=== PATIENT | male | born 1955 | race Caucasian/White ===

== ENCOUNTER 2017-09-29 15:33 | Inpatient (IN) | payer OTHER ==
[~2017-09-29] VITALS: Ht 170.2 cm; Wt 75.3 kg
[2017-09-29 16:34] LABS: Basophils # (auto) 0 uL; Eosinophils # (auto) 0 uL; Eosinophils % (auto) 0.1 % (0.0-7.0); Hemoglobin 18.5 g/dL (13.5-17.5); Lymphocytes # (auto) 1.2 uL; Neutrophils # (auto) 6.5 uL
[2017-09-29 16:36] LABS: Basophils % (auto) 0.1 % (0.0-2.0); Hematocrit 53.4 % (41.0-53.0); Lymphocytes % (auto) 13.8 % (10.0-50.0); Mean Corpuscular Hemoglobin 30.4 pg (28.0-32.0); Mean Corpuscular Hgb Conc. 34.7 g/dL (32.0-36.0); Mean Corpuscular Volume 87.5 fL (80.0-100.0); Monocytes # (auto) 1.2 uL; Monocytes % (auto) 13.1 % (0.0-12.0); Neutrophils % (auto) 72.9 % (37.0-80.0); Nucleated Red Blood Cells % 0.3 %; Platelet Count (auto) 339 10^3/uL (140-450); Red Cell Distribution Width 13.9 % (11.8-14.3); White Blood Cell 8.9 10^3/uL (4.4-10.8)
[2017-09-29 16:57] LABS: Albumin 3.4 g/dL (3.4-5.0); BUN/Creatinine Ratio 29.1; Bilirubin, Total 1.6 mg/dL (0.2-1.0); Calcium 12.3 mg/dL (8.5-10.1); Magnesium 2.3 mg/dL (1.6-2.6); Potassium 3.2 mmol/L (3.5-5.1); Total Protein 8.8 g/dL (6.4-8.2)
[2017-09-29] MEDS ORDERED: SODIUM CHLORIDE 0.9% 1,000 ML IVB ONE (18:08)
[2017-09-29 19:13] LABS: INR 1.1 (0.9-1.15); Partial Thromboplastin Time 24.4 sec (22.64-33.71)
[2017-09-29 20:05] LABS: Lactic Acid w/Reflex 2.7 mmol/L (0.4-2.0)
[2017-09-29] MEDS ORDERED: SODIUM CHLORIDE 0.9% 1,000 ML IV ONE (20:30)
[2017-09-29] MEDS ORDERED: ONDANSETRON HCL 4 MG/2 ML VIAL IV ONE (20:30)
[2017-09-29] MEDS ORDERED: MORPHINE SULF INJ 2 MG/ML SYRINGE 1ML IV ONE (20:30)
[2017-09-29] MEDS ORDERED: cefTRIAXone 1GM/10ml IVPUSH 10 ML IV ONE (20:45)
[2017-09-29] MEDS ORDERED: LIDOCAINE VISCOUS 2% 15ML UD PO ONE (21:15)
[2017-09-29] MEDS ORDERED: ONDANSETRON HCL 4 MG/2 ML VIAL IV PRN (22:15)
[2017-09-29] MEDS ORDERED: MORPHINE SULF INJ 2 MG/ML SYRINGE 1ML IV PRN (22:15)
[2017-09-29] MEDS ORDERED: ACETAMINOPHEN 325 MG TAB PO PRN (22:15)
[2017-09-29] MEDS ORDERED: NITROGLYCERIN 0.4 MG SL TAB SL PRN (22:15)
[2017-09-29] MEDS: SODIUM CHLORIDE 0.9% 1,000 ML IV SCH (22:51)
[2017-09-30] VITALS (10 sets, daily range): BP systolic 63–121; BP diastolic 43–69
[2017-09-30] MEDS: MORPHINE SULF INJ 2 MG/ML SYRINGE 1ML IV PRN ×2 (05:38→17:05)
[2017-09-30 08:04] LABS: Basophils # (auto) 0 uL; Basophils % (auto) 0.2 % (0.0-2.0); Eosinophils # (auto) 0 uL; Hematocrit 43.2 % (41.0-53.0); Hemoglobin 15.3 g/dL (13.5-17.5); Lymphocytes # (auto) 1.1 uL; Mean Corpuscular Hemoglobin 30.7 pg (28.0-32.0); Mean Corpuscular Hgb Conc. 35.5 g/dL (32.0-36.0); Mean Corpuscular Volume 86.6 fL (80.0-100.0); Monocytes # (auto) 0.9 uL; Monocytes % (auto) 8.8 % (0.0-12.0); Neutrophils # (auto) 7.9 uL; Nucleated Red Blood Cells % 0.1 %; Platelet Count (auto) 298 10^3/uL (140-450); Red Blood Cells 4.99 10^6/uL (4.5-5.90); Red Cell Distribution Width 13.6 % (11.8-14.3); White Blood Cell 9.9 10^3/uL (4.4-10.8)
[2017-09-30] MEDS: SODIUM CHLORIDE 0.9% 1,000 ML IV SCH ×2 (08:15→16:00)
[2017-09-30 08:16] LABS: Albumin 2.6 g/dL (3.4-5.0); BUN/Creatinine Ratio 43.8; Bilirubin, Total 1.1 mg/dL (0.2-1.0); Calcium 10.3 mg/dL (8.5-10.1)
[2017-09-30 08:26] LABS: Potassium 2.8 mmol/L (3.5-5.1)
[2017-09-30] MEDS ORDERED: cefTRIAXone 1GM/10ml IVPUSH 10 ML IV SCH (09:00)
[2017-09-30] MEDS: PANTOPRAZOLE 40 MG/10 ML VIAL IV SCH (09:20)
[2017-09-30] MEDS ORDERED: PNEUMOCOCCAL VACC POLYS 25 MCG/0.5 ML VIAL IM ONE (10:00)
[2017-09-30] MEDS ORDERED: INFLUENZA QUAD 2017-2018 0.5 ML SYRG IM ONE (10:00)
[2017-09-30 10:07] LABS: Urine Bacteria NONE SEEN /hpf (None Seen); Urine Blood Negative /uL (Negative); Urine Mucus FEW (None Seen); Urine Specific Gravity 1.021 (1.001-1.035); Urine WBC 4 /hpf (0 - 3)
[2017-09-30] MEDS ORDERED: GASTROGRAFIN 120 ML SOL ONE (11:09)
[2017-09-30] MEDS ORDERED: POTASSIUM CHLORIDE 40 MEQ, LIDOCAINE 1% (LOCAL ANESTH.) 4 ML in SODIUM CHL 0.9% 100 ML IV ONE (11:15)
[2017-09-30] MEDS: metroNIDAZOLE 500MG/100ML 100 ML IV SCH ×2 (13:13→17:33)
[2017-09-30 18:00] LABS: Hematocrit 42.5 % (41.0-53.0); Hemoglobin 14.6 g/dL (13.5-17.5); Mean Corpuscular Hemoglobin 30.4 pg (28.0-32.0); Mean Corpuscular Hgb Conc. 34.4 g/dL (32.0-36.0); Mean Corpuscular Volume 88.4 fL (80.0-100.0); Platelet Count (auto) 249 10^3/uL (140-450); Red Cell Distribution Width 13.9 % (11.8-14.3); White Blood Cell 5.8 10^3/uL (4.4-10.8)
[2017-09-30 18:01] LABS: Albumin 2.3 g/dL (3.4-5.0); BUN/Creatinine Ratio 36.8
[2017-09-30 18:02] LABS: Band Neutrophils % (manual) 0; Basophils % (manual) 0 (0.0-2.0); Blast Cells 0; Eosinophils % (manual) 0 (0-7); Promyelocytes % 0; Reactive Lymphocytes 0
[2017-09-30 18:03] LABS: Total Protein 6.2 g/dL (6.4-8.2)
[2017-09-30 18:04] LABS: Lactic Acid w/Reflex 2.2 mmol/L (0.4-2.0)
[2017-09-30 18:05] LABS: Potassium 2.5 mmol/L (3.5-5.1)
[2017-09-30 19:12] LABS: Lymphocytes % (manual) 24 (10.0-50.0); Metamyelocytes % 4; Monocytes % (manual) 5 (0-12); Myelocytes % 3
[2017-09-30] MEDS: ACETAMINOPHEN 650 MG RECT SUPP PR PRN (20:10)
[2017-09-30 21:41] LABS: BUN/Creatinine Ratio 36.3; Calcium 9.2 mg/dL (8.5-10.1)
[2017-09-30 21:46] LABS: Potassium 2.8 mmol/L (3.5-5.1)
[2017-09-30 23:03] LABS: Lactic Acid w/Reflex 2.6 mmol/L (0.4-2.0)
[2017-09-30] MEDS ORDERED: DILTIAZEM HCL 25 MG/5 ML VIAL IV ONE (23:45)
[2017-09-30] MEDS ORDERED: POTASSIUM CHL 20MEQ/50ML 50 ML IV ONE (23:51)
[2017-10-01] VITALS (59 sets, daily range): BP systolic 52–154; BP diastolic 17–77
[2017-10-01] MEDS: NOREPINEPHRINE 8 MG/250ML KIT 250 ML IV SCH ×2 (00:20→10:00)
[2017-10-01] MEDS: POTASSIUM CHL 20MEQ/50ML 50 ML IV SCH ×2 (00:30→01:45)
[2017-10-01] MEDS: SODIUM CHLORIDE 0.9% 1,000 ML IV SCH (01:15)
[2017-10-01] MEDS: metroNIDAZOLE 500MG/100ML 100 ML IV SCH ×4 (01:15→18:06)
[2017-10-01 05:23] LABS: Hematocrit 42.1 % (41.0-53.0); Hemoglobin 13.9 g/dL (13.5-17.5); Mean Corpuscular Hemoglobin 29.6 pg (28.0-32.0); Mean Corpuscular Hgb Conc. 33.1 g/dL (32.0-36.0); Mean Corpuscular Volume 89.4 fL (80.0-100.0); Platelet Count (auto) 268 10^3/uL (140-450); Red Blood Cells 4.71 10^6/uL (4.5-5.90); White Blood Cell 20.1 10^3/uL (4.4-10.8)
[2017-10-01 05:28] LABS: Basophils % (manual) 0 (0.0-2.0); Blast Cells 0; Eosinophils % (manual) 0 (0-7); Monocytes % (manual) 0 (0-12); Promyelocytes % 0; Reactive Lymphocytes 0
[2017-10-01 05:38] LABS: Lactic Acid w/Reflex 2.5 mmol/L (0.4-2.0)
[2017-10-01 06:09] LABS: Band Neutrophils % (manual) 34; Lymphocytes % (manual) 10 (10.0-50.0); Metamyelocytes % 12; Myelocytes % 3
[2017-10-01] MEDS: ACETAMINOPHEN 650 MG RECT SUPP PR PRN (06:21)
[2017-10-01 07:00] LABS: Potassium 3.1 mmol/L (3.5-5.1)
[2017-10-01 07:07] LABS: Albumin 2.2 g/dL (3.4-5.0); BUN/Creatinine Ratio 48.4; Bilirubin, Total 1.2 mg/dL (0.2-1.0); Total Protein 6.4 g/dL (6.4-8.2)
[2017-10-01] MEDS ORDERED: POTASSIUM CHLORIDE 40 MEQ, LIDOCAINE 1% (LOCAL ANESTH.) 4 ML in SODIUM CHL 0.9% 100 ML IV ONE (09:00)
[2017-10-01] MEDS ORDERED: methylPREDNISolone SOD SUCC 125 MG/2 ML VL IV ONE (09:15)
[2017-10-01] MEDS: ALBUTEROL SULF 2.5 MG/0.5ML(0.5%) NEB SOLN NEB SCH ×4 (09:31→22:10)
[2017-10-01] MEDS: IPRATROPIUM BROM 0.5 MG/2.5ML INH SOL NEB SCH ×4 (09:31→22:10)
[2017-10-01] MEDS: PANTOPRAZOLE 40 MG/10 ML VIAL IV SCH (09:49)
[2017-10-01] MEDS: PIPERACILLIN-TAZOB 3.375GM 50 ML IV SCH ×3 (09:49→21:13)
[2017-10-01] MEDS ORDERED: GASTROGRAFIN 120 ML SOL ONE (13:42)
[2017-10-01] MEDS ORDERED: POTASSIUM CHLORIDE 40 MEQ in D5W/LACTATED RINGERS 1,000 ML IV SCH (14:00)
[2017-10-01 14:03] LABS: Amylase 42 U/L (25-115); Lipase 29 U/L (73-393)
[2017-10-01] MEDS ORDERED: LIDOCAINE 1% HCL (LOCAL ANESTH.) INJ 20ML MDV ID ONE (16:45)
[2017-10-01] MEDS: SODIUM CHLOR 0.9% PF (SALINE LOCK) 10ML VIAL IV SCH (21:13)
[2017-10-01] MEDS: MORPHINE SULF INJ 2 MG/ML SYRINGE 1ML IV PRN (22:00)
[2017-10-02] VITALS (9 sets, daily range): BP systolic 108–156; BP diastolic 42–96
[2017-10-02] MEDS: metroNIDAZOLE 500MG/100ML 100 ML IV SCH ×2 (00:15→05:58)
[2017-10-02] MEDS: ALBUTEROL SULF 2.5 MG/0.5ML(0.5%) NEB SOLN NEB SCH ×6 (02:27→22:53)
[2017-10-02] MEDS: IPRATROPIUM BROM 0.5 MG/2.5ML INH SOL NEB SCH ×6 (02:27→22:53)
[2017-10-02] MEDS: PIPERACILLIN-TAZOB 3.375GM 50 ML IV SCH ×4 (03:00→21:00)
[2017-10-02 05:54] LABS: Hematocrit 40.9 % (41.0-53.0); Hemoglobin 13.9 g/dL (13.5-17.5); Mean Corpuscular Hemoglobin 30.6 pg (28.0-32.0); Mean Corpuscular Volume 90.1 fL (80.0-100.0); Platelet Count (auto) 229 10^3/uL (140-450); Red Blood Cells 4.54 10^6/uL (4.5-5.90); Red Cell Distribution Width 14.1 % (11.8-14.3)
[2017-10-02 06:06] LABS: Basophils % (manual) 0 (0.0-2.0); Blast Cells 0; Eosinophils % (manual) 0 (0-7); Metamyelocytes % 0; Myelocytes % 0; Promyelocytes % 0; Reactive Lymphocytes 0
[2017-10-02 06:11] LABS: BUN/Creatinine Ratio 43.3; Bilirubin, Total 0.7 mg/dL (0.2-1.0); Calcium 8.5 mg/dL (8.5-10.1); Potassium 3.7 mmol/L (3.5-5.1); Total Protein 6.4 g/dL (6.4-8.2)
[2017-10-02 09:12] LABS: Band Neutrophils % (manual) 0; Lymphocytes % (manual) 8 (10.0-50.0); Monocytes % (manual) 2 (0-12)
[2017-10-02] MEDS: PANTOPRAZOLE 40 MG/10 ML VIAL IV SCH (09:38)
[2017-10-02] MEDS: SODIUM CHLOR 0.9% PF (SALINE LOCK) 10ML VIAL IV SCH ×2 (09:49→21:00)
[2017-10-02] MEDS ORDERED: methylPREDNISolone SOD SUCC 125 MG/2 ML VL IV SCH (10:00)
[2017-10-02] MEDS ORDERED: VANCOMYCIN PER PHARMACY 0 MG IV SCH (12:30)
[2017-10-02] MEDS ORDERED: VANCOMYCIN 1GM/250ML 250 ML IV SCH (13:00)
[2017-10-02] MEDS: VANCOMYCIN 1GM/250ML 250 ML IV SCH (13:36)
[2017-10-02] MEDS: D5W/SOD CHL 0.45%/KCL 20MEQ 1,000 ML IV SCH ×2 (15:49→22:02)
[2017-10-02] MEDS: ENOXAPARIN SOD 40 MG/0.4 ML SYRINGE SC SCH (15:50)
[2017-10-03] VITALS (7 sets, daily range): BP systolic 117–128; BP diastolic 59–87
[2017-10-03] MEDS: VANCOMYCIN 1GM/250ML 250 ML IV SCH ×2 (01:45→14:31)
[2017-10-03] MEDS: ALBUTEROL SULF 2.5 MG/0.5ML(0.5%) NEB SOLN NEB SCH ×6 (02:32→22:21)
[2017-10-03] MEDS: IPRATROPIUM BROM 0.5 MG/2.5ML INH SOL NEB SCH ×6 (02:32→22:21)
[2017-10-03] MEDS: PIPERACILLIN-TAZOB 3.375GM 50 ML IV SCH ×4 (03:13→21:27)
[2017-10-03 06:21] LABS: Hematocrit 41.6 % (41.0-53.0); Hemoglobin 13.7 g/dL (13.5-17.5); Mean Corpuscular Hemoglobin 29.9 pg (28.0-32.0); Mean Corpuscular Hgb Conc. 32.9 g/dL (32.0-36.0); Mean Corpuscular Volume 90.9 fL (80.0-100.0); Platelet Count (auto) 202 10^3/uL (140-450); Red Blood Cells 4.58 10^6/uL (4.5-5.90); Red Cell Distribution Width 14.2 % (11.8-14.3); White Blood Cell 12.3 10^3/uL (4.4-10.8)
[2017-10-03 06:26] LABS: Eosinophils % (manual) 0 (0-7)
[2017-10-03 06:27] LABS: Basophils % (manual) 0 (0.0-2.0); Blast Cells 0; Metamyelocytes % 0; Myelocytes % 0; Promyelocytes % 0; Reactive Lymphocytes 0
[2017-10-03 06:40] LABS: Potassium 4.2 mmol/L (3.5-5.1)
[2017-10-03 06:41] LABS: Albumin 1.9 g/dL (3.4-5.0); BUN/Creatinine Ratio 53.4; Bilirubin, Total 0.6 mg/dL (0.2-1.0); Calcium 7.9 mg/dL (8.5-10.1)
[2017-10-03] MEDS: D5W/SOD CHL 0.45%/KCL 20MEQ 1,000 ML IV SCH ×2 (09:30→21:27)
[2017-10-03 09:42] LABS: Band Neutrophils % (manual) 2; Lymphocytes % (manual) 10 (10.0-50.0); Monocytes % (manual) 8 (0-12)
[2017-10-03] MEDS: PANTOPRAZOLE 40 MG/10 ML VIAL IV SCH (10:00)
[2017-10-03] MEDS: ENOXAPARIN SOD 40 MG/0.4 ML SYRINGE SC SCH (10:00)
[2017-10-03 18:52] LABS: Albumin 2.1 g/dL (3.4-5.0); BUN/Creatinine Ratio 52.9; Potassium 4.7 mmol/L (3.5-5.1)
[2017-10-03 18:55] LABS: Bilirubin, Total 0.5 mg/dL (0.2-1.0); Total Protein 6.2 g/dL (6.4-8.2)
[2017-10-03] MEDS: SODIUM CHLOR 0.9% PF (SALINE LOCK) 10ML VIAL IV SCH (21:27)
[2017-10-04] VITALS: BP 114/76
[2017-10-04] MEDS: VANCOMYCIN 1GM/250ML 250 ML IV SCH (02:05)
[2017-10-04] MEDS: ALBUTEROL SULF 2.5 MG/0.5ML(0.5%) NEB SOLN NEB SCH ×6 (02:39→21:44)
[2017-10-04] MEDS: IPRATROPIUM BROM 0.5 MG/2.5ML INH SOL NEB SCH ×6 (02:39→21:44)
[2017-10-04] MEDS: PIPERACILLIN-TAZOB 3.375GM 50 ML IV SCH ×4 (03:31→20:35)
[2017-10-04] MEDS: D5W/SOD CHL 0.45%/KCL 20MEQ 1,000 ML IV SCH ×3 (03:31→18:29)
[2017-10-04] MEDS: MORPHINE SULF INJ 2 MG/ML SYRINGE 1ML IV PRN (03:44)
[2017-10-04 04:00] VITALS: BP 113/72
[2017-10-04 06:10] LABS: Hematocrit 41.9 % (41.0-53.0); Hemoglobin 13.8 g/dL (13.5-17.5); Mean Corpuscular Hemoglobin 29.9 pg (28.0-32.0); Mean Corpuscular Volume 90.6 fL (80.0-100.0); Platelet Count (auto) 290 10^3/uL (140-450); Potassium 4.6 mmol/L (3.5-5.1); Red Blood Cells 4.63 10^6/uL (4.5-5.90); White Blood Cell 14.6 10^3/uL (4.4-10.8)
[2017-10-04 06:14] LABS: BUN/Creatinine Ratio 51.3; Calcium 7.9 mg/dL (8.5-10.1)
[2017-10-04 06:17] LABS: Bilirubin, Total 0.6 mg/dL (0.2-1.0)
[2017-10-04 06:21] LABS: Band Neutrophils % (manual) 0; Basophils % (manual) 0 (0.0-2.0); Blast Cells 0; Eosinophils % (manual) 0 (0-7); Myelocytes % 0; Promyelocytes % 0; Reactive Lymphocytes 0
[2017-10-04 06:57] LABS: Lymphocytes % (manual) 5 (10.0-50.0); Metamyelocytes % 2; Monocytes % (manual) 8 (0-12)
[2017-10-04 08:00] VITALS: BP 117/75
[2017-10-04] MEDS: ENOXAPARIN SOD 40 MG/0.4 ML SYRINGE SC SCH (09:42)
[2017-10-04] MEDS: PANTOPRAZOLE 40 MG/10 ML VIAL IV SCH (09:42)
[2017-10-04] MEDS: SODIUM CHLOR 0.9% PF (SALINE LOCK) 10ML VIAL IV SCH (09:44)
[2017-10-04 11:51] VITALS: BP 126/85
[2017-10-04] MEDS: VANCOMYCIN 1,250 MG in D5W 5% 250 ML IV SCH (14:00)
[2017-10-04] MEDS ORDERED: GOLYTELY 4L KIT PO ONE (14:30)
[2017-10-04] MEDS ORDERED: GASTROGRAFIN 120 ML SOL ONE (14:54)
[2017-10-04 15:45] VITALS: BP 122/80
[2017-10-04 20:00] VITALS: BP 122/72
[2017-10-05] VITALS (7 sets, daily range): BP systolic 99–127; BP diastolic 60–89
[2017-10-05] MEDS: SODIUM CHLOR 0.9% PF (SALINE LOCK) 10ML VIAL IV SCH ×3 (00:28→22:08)
[2017-10-05] MEDS: ACETAMINOPHEN 650 MG RECT SUPP PR PRN (00:32)
[2017-10-05] MEDS: VANCOMYCIN 1,250 MG in D5W 5% 250 ML IV SCH ×2 (02:02→14:06)
[2017-10-05] MEDS: ALBUTEROL SULF 2.5 MG/0.5ML(0.5%) NEB SOLN NEB SCH ×6 (02:10→22:37)
[2017-10-05] MEDS: IPRATROPIUM BROM 0.5 MG/2.5ML INH SOL NEB SCH ×6 (02:10→22:37)
[2017-10-05] MEDS: PIPERACILLIN-TAZOB 3.375GM 50 ML IV SCH ×4 (03:52→21:00)
[2017-10-05 05:41] LABS: Basophils # (auto) 0 uL; Basophils % (auto) 0.1 % (0.0-2.0); Eosinophils # (auto) 0.4 uL; Eosinophils % (auto) 2.1 % (0.0-7.0); Hematocrit 47.7 % (41.0-53.0); Hemoglobin 15.8 g/dL (13.5-17.5); Lymphocytes # (auto) 1.3 uL; Lymphocytes % (auto) 6.8 % (10.0-50.0); Mean Corpuscular Hemoglobin 29.9 pg (28.0-32.0); Mean Corpuscular Hgb Conc. 33.2 g/dL (32.0-36.0); Mean Corpuscular Volume 90.2 fL (80.0-100.0); Monocytes # (auto) 0.1 uL; Monocytes % (auto) 0.6 % (0.0-12.0); Neutrophils # (auto) 16.6 uL; Neutrophils % (auto) 90.4 % (37.0-80.0); Platelet Count (auto) 174 10^3/uL (140-450); Red Blood Cells 5.29 10^6/uL (4.5-5.90); Red Cell Distribution Width 14.4 % (11.8-14.3); White Blood Cell 18.4 10^3/uL (4.4-10.8)
[2017-10-05 05:56] LABS: Albumin 2.1 g/dL (3.4-5.0); Calcium 8.7 mg/dL (8.5-10.1); Potassium 4.2 mmol/L (3.5-5.1)
[2017-10-05 05:59] LABS: BUN/Creatinine Ratio 35.4
[2017-10-05 06:01] LABS: Bilirubin, Total 1.2 mg/dL (0.2-1.0); Total Protein 6.7 g/dL (6.4-8.2)
[2017-10-05] MEDS: D5W/SOD CHL 0.45%/KCL 20MEQ 1,000 ML IV SCH ×3 (10:00→20:30)
[2017-10-05] MEDS: ENOXAPARIN SOD 40 MG/0.4 ML SYRINGE SC SCH (10:14)
[2017-10-05] MEDS: PANTOPRAZOLE 40 MG/10 ML VIAL IV SCH (10:14)
[2017-10-06] MEDS: VANCOMYCIN 1,250 MG in D5W 5% 250 ML IV SCH (01:36)
[2017-10-06] MEDS: IPRATROPIUM BROM 0.5 MG/2.5ML INH SOL NEB SCH ×6 (02:09→22:11)
[2017-10-06] MEDS: ALBUTEROL SULF 2.5 MG/0.5ML(0.5%) NEB SOLN NEB SCH ×6 (02:09→22:11)
[2017-10-06] MEDS: PIPERACILLIN-TAZOB 3.375GM 50 ML IV SCH ×4 (03:00→21:00)
[2017-10-06 04:22] VITALS: BP 102/54
[2017-10-06] MEDS: D5W/SOD CHL 0.45%/KCL 20MEQ 1,000 ML IV SCH ×2 (04:30→16:52)
[2017-10-06 05:21] LABS: Hematocrit 45.1 % (41.0-53.0); Hemoglobin 15.1 g/dL (13.5-17.5); Mean Corpuscular Hemoglobin 30.1 pg (28.0-32.0); Mean Corpuscular Hgb Conc. 33.6 g/dL (32.0-36.0); Mean Corpuscular Volume 89.6 fL (80.0-100.0); Platelet Count (auto) 172 10^3/uL (140-450); Red Blood Cells 5.03 10^6/uL (4.5-5.90); Red Cell Distribution Width 14.6 % (11.8-14.3)
[2017-10-06] MEDS: MORPHINE SULF INJ 2 MG/ML SYRINGE 1ML IV PRN ×2 (05:38→14:26)
[2017-10-06 05:40] LABS: Basophils % (manual) 0 (0.0-2.0); Blast Cells 0; Metamyelocytes % 0; Myelocytes % 0; Promyelocytes % 0; Reactive Lymphocytes 0
[2017-10-06 05:47] LABS: BUN/Creatinine Ratio 23.2
[2017-10-06 07:30] VITALS: BP 102/74
[2017-10-06] MEDS: SODIUM CHLOR 0.9% PF (SALINE LOCK) 10ML VIAL IV SCH ×2 (10:22→22:02)
[2017-10-06] MEDS: ENOXAPARIN SOD 40 MG/0.4 ML SYRINGE SC SCH (10:22)
[2017-10-06] MEDS: PANTOPRAZOLE 40 MG/10 ML VIAL IV SCH (10:22)
[2017-10-06 11:48] VITALS: BP 100/60
[2017-10-06 11:56] LABS: Band Neutrophils % (manual) 2; Eosinophils % (manual) 1 (0-7); Lymphocytes % (manual) 6 (10.0-50.0); Monocytes % (manual) 2 (0-12)
[2017-10-06 16:45] VITALS: BP 135/58
[2017-10-06] MEDS: HYDROmorphone HCL 2 MG/ML VL IV PRN ×2 (16:51→20:53)
[2017-10-06 20:00] VITALS: BP 108/62
[2017-10-06 20:21] VITALS: BP 135/58
[2017-10-07] VITALS: BP 99/63
[2017-10-07] MEDS: IPRATROPIUM BROM 0.5 MG/2.5ML INH SOL NEB SCH ×5 (02:17→22:26)
[2017-10-07] MEDS: ALBUTEROL SULF 2.5 MG/0.5ML(0.5%) NEB SOLN NEB SCH ×5 (02:17→22:26)
[2017-10-07] MEDS: D5W/SOD CHL 0.45%/KCL 20MEQ 1,000 ML IV SCH ×4 (03:00→20:30)
[2017-10-07] MEDS: PIPERACILLIN-TAZOB 3.375GM 50 ML IV SCH ×4 (03:16→21:04)
[2017-10-07 04:00] VITALS: BP 107/66
[2017-10-07] MEDS ORDERED: SODIUM CHLORIDE 0.9 % NEB SOLN 3ML NEB ONE (05:41)
[2017-10-07 07:18] LABS: Hematocrit 42.7 % (41.0-53.0); Hemoglobin 14.2 g/dL (13.5-17.5); Mean Corpuscular Hemoglobin 30.3 pg (28.0-32.0); Mean Corpuscular Hgb Conc. 33.3 g/dL (32.0-36.0); Mean Corpuscular Volume 90.9 fL (80.0-100.0); Platelet Count (auto) 230 10^3/uL (140-450); Red Cell Distribution Width 14.6 % (11.8-14.3); White Blood Cell 10.9 10^3/uL (4.4-10.8)
[2017-10-07 07:25] LABS: Basophils % (manual) 0 (0.0-2.0); Blast Cells 0; Eosinophils % (manual) 0 (0-7); Metamyelocytes % 0; Monocytes % (manual) 0 (0-12); Myelocytes % 0; Promyelocytes % 0; Reactive Lymphocytes 0
[2017-10-07 07:29] LABS: Potassium 4.5 mmol/L (3.5-5.1)
[2017-10-07 07:33] LABS: BUN/Creatinine Ratio 18.2
[2017-10-07 07:57] LABS: Band Neutrophils % (manual) 2; Lymphocytes % (manual) 10 (10.0-50.0)
[2017-10-07 08:00] VITALS: BP 109/76
[2017-10-07] MEDS: ENOXAPARIN SOD 40 MG/0.4 ML SYRINGE SC SCH (10:14)
[2017-10-07] MEDS: PANTOPRAZOLE 40 MG/10 ML VIAL IV SCH (10:14)
[2017-10-07] MEDS: SODIUM CHLOR 0.9% PF (SALINE LOCK) 10ML VIAL IV SCH (10:14)
[2017-10-07 12:00] VITALS: BP 111/58
[2017-10-07 15:59] VITALS: BP 98/63
[2017-10-07] MEDS ORDERED: VANCOMYCIN 1GM/250ML 250 ML IV ONE (17:00)
[2017-10-07 20:00] VITALS: BP 100/62
[2017-10-08] MEDS: ALBUTEROL SULF 2.5 MG/0.5ML(0.5%) NEB SOLN NEB SCH ×6 (01:53→22:05)
[2017-10-08] MEDS: IPRATROPIUM BROM 0.5 MG/2.5ML INH SOL NEB SCH ×6 (01:53→22:05)
[2017-10-08] MEDS: SODIUM CHLOR 0.9% PF (SALINE LOCK) 10ML VIAL IV SCH ×3 (02:35→21:17)
[2017-10-08] MEDS: PIPERACILLIN-TAZOB 3.375GM 50 ML IV SCH ×4 (02:51→21:17)
[2017-10-08 05:57] LABS: Basophils # (auto) 0.1 uL; Basophils % (auto) 0.8 % (0.0-2.0); Eosinophils # (auto) 0.1 uL; Eosinophils % (auto) 0.8 % (0.0-7.0); Hemoglobin 14.8 g/dL (13.5-17.5); Lymphocytes # (auto) 1.1 uL; Lymphocytes % (auto) 9.7 % (10.0-50.0); Monocytes # (auto) 0.5 uL; Monocytes % (auto) 4.6 % (0.0-12.0); Neutrophils # (auto) 9.5 uL; Neutrophils % (auto) 84.1 % (37.0-80.0); Platelet Count (auto) 340 10^3/uL (140-450); Red Blood Cells 4.94 10^6/uL (4.5-5.90); Red Cell Distribution Width 14.9 % (11.8-14.3); White Blood Cell 11.3 10^3/uL (4.4-10.8)
[2017-10-08 06:14] LABS: BUN/Creatinine Ratio 15.7; Calcium 8.4 mg/dL (8.5-10.1); Potassium 4.2 mmol/L (3.5-5.1)
[2017-10-08] MEDS: D5W/SOD CHL 0.45%/KCL 20MEQ 1,000 ML IV SCH ×3 (07:00→20:06)
[2017-10-08 08:00] VITALS: BP 120/75
[2017-10-08] MEDS: PANTOPRAZOLE 40 MG/10 ML VIAL IV SCH (09:46)
[2017-10-08] MEDS: ENOXAPARIN SOD 40 MG/0.4 ML SYRINGE SC SCH (09:46)
[2017-10-08 12:00] VITALS: BP 98/71
[2017-10-08 15:54] VITALS: BP 101/72
[2017-10-08 19:58] VITALS: BP 98/47
[2017-10-09] VITALS: BP 103/74
[2017-10-09] MEDS: IPRATROPIUM BROM 0.5 MG/2.5ML INH SOL NEB SCH ×6 (01:51→22:55)
[2017-10-09] MEDS: ALBUTEROL SULF 2.5 MG/0.5ML(0.5%) NEB SOLN NEB SCH ×6 (01:51→22:55)
[2017-10-09] MEDS: PIPERACILLIN-TAZOB 3.375GM 50 ML IV SCH ×4 (03:17→20:31)
[2017-10-09 05:30] LABS: Basophils # (auto) 0 uL; Basophils % (auto) 0.2 % (0.0-2.0); Eosinophils # (auto) 0.1 uL; Eosinophils % (auto) 0.9 % (0.0-7.0); Hematocrit 45.7 % (41.0-53.0); Lymphocytes # (auto) 1.3 uL; Lymphocytes % (auto) 11.3 % (10.0-50.0); Mean Corpuscular Hgb Conc. 32.9 g/dL (32.0-36.0); Mean Corpuscular Volume 91.2 fL (80.0-100.0); Monocytes # (auto) 0.6 uL; Neutrophils # (auto) 9.7 uL; Neutrophils % (auto) 82.6 % (37.0-80.0); Platelet Count (auto) 402 10^3/uL (140-450); Red Blood Cells 5.01 10^6/uL (4.5-5.90); Red Cell Distribution Width 15.1 % (11.8-14.3); White Blood Cell 11.8 10^3/uL (4.4-10.8)
[2017-10-09 05:45] LABS: BUN/Creatinine Ratio 13.3; Calcium 8.7 mg/dL (8.5-10.1); Potassium 4.3 mmol/L (3.5-5.1)
[2017-10-09] MEDS: D5W/SOD CHL 0.45%/KCL 20MEQ 1,000 ML IV SCH ×2 (07:22→14:17)
[2017-10-09 08:00] VITALS: BP 108/75
[2017-10-09] MEDS ORDERED: GASTROGRAFIN 120 ML SOL ONE (09:02)
[2017-10-09] MEDS: PANTOPRAZOLE 40 MG/10 ML VIAL IV SCH (09:21)
[2017-10-09] MEDS: ENOXAPARIN SOD 40 MG/0.4 ML SYRINGE SC SCH (09:21)
[2017-10-09] MEDS: SODIUM CHLOR 0.9% PF (SALINE LOCK) 10ML VIAL IV SCH ×2 (09:22→20:55)
[2017-10-09 11:50] VITALS: BP 105/64
[2017-10-09 15:50] VITALS: BP 119/71
[2017-10-09] MEDS: D5W 5% 1,000 ML IV SCH (15:54)
[2017-10-09 19:53] VITALS: BP 107/78
[2017-10-10] VITALS (8 sets, daily range): BP systolic 99–141; BP diastolic 59–79
[2017-10-10] MEDS: IPRATROPIUM BROM 0.5 MG/2.5ML INH SOL NEB SCH ×7 (02:49→22:10)
[2017-10-10] MEDS: ALBUTEROL SULF 2.5 MG/0.5ML(0.5%) NEB SOLN NEB SCH ×7 (02:49→22:10)
[2017-10-10] MEDS: PIPERACILLIN-TAZOB 3.375GM 50 ML IV SCH ×4 (04:09→21:34)
[2017-10-10 06:32] LABS: Basophils # (auto) 0.1 uL; Basophils % (auto) 0.4 % (0.0-2.0); Eosinophils # (auto) 0.1 uL; Eosinophils % (auto) 0.4 % (0.0-7.0); Hemoglobin 16.4 g/dL (13.5-17.5); Nucleated Red Blood Cells % 0.1 %
[2017-10-10 06:34] LABS: Hematocrit 49.1 % (41.0-53.0); Lymphocytes # (auto) 1.5 uL; Lymphocytes % (auto) 8.7 % (10.0-50.0); Mean Corpuscular Hemoglobin 30.3 pg (28.0-32.0); Mean Corpuscular Hgb Conc. 33.3 g/dL (32.0-36.0); Monocytes % (auto) 5.8 % (0.0-12.0); Neutrophils # (auto) 14.9 uL; Neutrophils % (auto) 84.7 % (37.0-80.0); Platelet Count (auto) 505 10^3/uL (140-450); Red Cell Distribution Width 15.1 % (11.8-14.3); White Blood Cell 17.5 10^3/uL (4.4-10.8)
[2017-10-10 06:52] LABS: BUN/Creatinine Ratio 15.2; Calcium 8.8 mg/dL (8.5-10.1); Potassium 4.3 mmol/L (3.5-5.1)
[2017-10-10] MEDS: PANTOPRAZOLE 40 MG/10 ML VIAL IV SCH (10:25)
[2017-10-10] MEDS: SODIUM CHLOR 0.9% PF (SALINE LOCK) 10ML VIAL IV SCH ×2 (10:26→21:35)
[2017-10-10] MEDS: ENOXAPARIN SOD 40 MG/0.4 ML SYRINGE SC SCH (10:26)
[2017-10-10] MEDS: D5W/SOD CHL 0.45% 1,000 ML IV SCH ×2 (11:39→21:41)
[2017-10-10 12:22] LABS: Creatinine, Urine 141 mg/dL (30.0-125.0); Sodium Urine 17 mmol/L (40-220)
[2017-10-10] MEDS: D5W 5% 1,000 ML IV SCH (14:45)
[2017-10-10] MEDS: HYDROmorphone HCL 2 MG/ML VL IV PRN (21:32)
[2017-10-10] MEDS: ALBUMIN 25% 100 ML IV SCH (21:37)
[2017-10-11] MEDS: IPRATROPIUM BROM 0.5 MG/2.5ML INH SOL NEB SCH ×5 (02:17→18:49)
[2017-10-11] MEDS: ALBUTEROL SULF 2.5 MG/0.5ML(0.5%) NEB SOLN NEB SCH ×5 (02:17→18:49)
[2017-10-11] MEDS: PIPERACILLIN-TAZOB 3.375GM 50 ML IV SCH ×3 (02:50→15:41)
[2017-10-11] MEDS: D5W/SOD CHL 0.45% 1,000 ML IV SCH ×2 (02:51→10:46)
[2017-10-11] MEDS: HYDROmorphone HCL 2 MG/ML VL IV PRN ×3 (05:04→15:31)
[2017-10-11 06:13] VITALS: BP 141/78
[2017-10-11 06:29] LABS: Basophils # (auto) 0.1 uL; Basophils % (auto) 0.5 % (0.0-2.0); Eosinophils # (auto) 0.1 uL; Eosinophils % (auto) 0.6 % (0.0-7.0); Hematocrit 40.5 % (41.0-53.0); Hemoglobin 13.3 g/dL (13.5-17.5); Lymphocytes # (auto) 1.1 uL; Lymphocytes % (auto) 8.9 % (10.0-50.0); Mean Corpuscular Hgb Conc. 32.8 g/dL (32.0-36.0); Mean Corpuscular Volume 91.7 fL (80.0-100.0); Monocytes # (auto) 0.7 uL; Monocytes % (auto) 5.2 % (0.0-12.0); Neutrophils # (auto) 10.7 uL; Neutrophils % (auto) 84.8 % (37.0-80.0); Platelet Count (auto) 398 10^3/uL (140-450); Red Blood Cells 4.42 10^6/uL (4.5-5.90); Red Cell Distribution Width 14.8 % (11.8-14.3); White Blood Cell 12.6 10^3/uL (4.4-10.8)
[2017-10-11 06:52] LABS: Calcium 8.2 mg/dL (8.5-10.1); Potassium 3.5 mmol/L (3.5-5.1)
[2017-10-11 06:56] LABS: BUN/Creatinine Ratio 18.2
[2017-10-11 09:00] VITALS: BP 132/84
[2017-10-11] MEDS: SODIUM CHLOR 0.9% PF (SALINE LOCK) 10ML VIAL IV SCH (10:45)
[2017-10-11] MEDS: PANTOPRAZOLE 40 MG/10 ML VIAL IV SCH (10:45)
[2017-10-11] MEDS: ENOXAPARIN SOD 40 MG/0.4 ML SYRINGE SC SCH (10:46)
[2017-10-11 12:26] VITALS: BP 135/80
[2017-10-11] MEDS ORDERED: D5W/SOD CHL 0.45%/KCL 20MEQ 1,000 ML IV SCH (13:45)
[2017-10-11] MEDS ORDERED: D5W/SOD CHL 0.45% 1,000 ML IV SCH (13:45)
[2017-10-11 17:03] VITALS: BP 136/77
[2017-10-11] MEDS: ALBUMIN 25% 100 ML IV SCH (17:04)
[2017-10-11 18:04] VITALS: BP 136/77
[2017-10-11 21:16] VITALS: BP 129/71
== END 2017-10-11 21:25 | disposition short-term general hospital (02) | DRG 871 ==
LOC: ER 15:53 → TELE 15:54 → DOU IN ICU 09-30 04:32 → TELE-WESTW 09-30 04:40 → DOU IN ICU 09-30 15:34 → TELE-WESTW 10-09 21:05
PROVIDERS: ADMIT Nurse Practitioner; ATTEND Hospitalist
PROC: 5A09357 Assistance with Respiratory Ventilation, Less than 24 Consecutive Hours, Continuous Positive Airway Pressure (ICD-10-PCS; principal; 2017-09-30)
PROC: 0D9670Z Drainage of Stomach with Drainage Device, Via Natural or Artificial Opening (ICD-10-PCS; 2017-09-30)
PROC: 5A09357 Assistance with Respiratory Ventilation, Less than 24 Consecutive Hours, Continuous Positive Airway Pressure (ICD-10-PCS; 2017-10-01)
PROC: 02HV33Z Insertion of Infusion Device into Superior Vena Cava, Percutaneous Approach (ICD-10-PCS; 2017-10-01)
PROC: 0D9670Z Drainage of Stomach with Drainage Device, Via Natural or Artificial Opening (ICD-10-PCS; 2017-10-10)
DX: A41.9 Sepsis, unspecified organism (principal); R65.21 Severe sepsis with septic shock; J96.01 Acute respiratory failure with hypoxia; N17.0 Acute kidney failure with tubular necrosis; J69.0 Pneumonitis due to inhalation of food and vomit; K56.600 Partial intestinal obstruction, unspecified as to cause; E87.1 Hypo-osmolality and hyponatremia; K56.7 Ileus, unspecified; E87.0 Hyperosmolality and hypernatremia; E87.6 Hypokalemia; E86.0 Dehydration; I12.9 Hypertensive chronic kidney disease with stage 1 through stage 4 chronic kidney disease, or unspecified chronic kidney disease; J44.9 Chronic obstructive pulmonary disease, unspecified; N18.9 Chronic kidney disease, unspecified; N40.0 Benign prostatic hyperplasia without lower urinary tract symptoms; T36.8X5A Adverse effect of other systemic antibiotics, initial encounter; F17.210 Nicotine dependence, cigarettes, uncomplicated; Z23 Encounter for immunization
CPT/HCPCS: 36415; 36569; 36600; 70450; 71045; 71046; 74018; 74021; 74176; 74250; 76775; 80048; 80053; 80202; 81001; 82150; 82306; 82570; 82805; 82962; 83605; 83690; 83735; 83880; 83970; 84100; 84146; 84300; 84484; 85007; 85025; 85027; 85610; 85730; 87040; 87081; 87086; 87400; 93005; 94640; 94660; 94667; 94668; 94761; 96361; 96374; 96375; 97116; 97163; 97530; A4615; C9113; J2001; J2405; J2543; J3490; J7060